=== PATIENT | male | born 1965 | race Caucasian/White ===

== ENCOUNTER 2023-05-24 14:27 | Inpatient (IN) | payer OTHER, BC ==
[~2023-05-24] VITALS: Ht 177.8 cm; Wt 80.9 kg
[~2023-05-24 14:27] MED LIST: B 100; B-121000 MCG; SUPPLEMENTS; VITAMIN C500 MG; VITAMIN D31000 I1
[2023-05-24] MEDS ORDERED: LIPITOR 80MG80 MG PO (14:30)
[2023-05-24] MEDS ORDERED: ELIQUIS 5MG PO (14:30)
[2023-05-24] MEDS ORDERED: ASPIRIN E.C. 8181 MG PO (14:30)
[2023-05-24] MEDS ORDERED: NEURONTIN300 MG/CAP PO (14:31)
[2023-05-24] MEDS ORDERED: GLUCOTROL 5M5 MG/TAB PO (14:32)
[2023-05-24] MEDS ORDERED: NORCO 325 MG-51 TAB PO (14:33)
[2023-05-24] MEDS ORDERED: LANTUS100 U/ML SQ (14:34)
[2023-05-24] MEDS ORDERED: HUMALOG100 U/ML SQ (14:36)
[2023-05-24] MEDS ORDERED: GLUCOPHAGE500 MG/TAB PO (14:37)
[2023-05-24] MEDS ORDERED: TOPROL XL 25MG25 MG PO (14:38)
[2023-05-24 17:00] VITALS: BP_SYST 122
[2023-05-24 17:51] VITALS: BP 122/94; PULSE 90; TEMP 97.9
[2023-05-24 18:30] VITALS: BP_SYST 122
--- NOTE | 2023-05-24 20:00 | NUR ---
PT RESTING IN BED. A&O X4. LT STUMP WITH IMMOBILIZER. OCCLUSIVE DRSG AND FAYE WRAP TO LLE STUMP. SMALL AMT OF BLEEDING THROUGH FAYE WRAP. WILL CONTINUE TO MONITOR. BUTTOCKS HAS SHEARING TO COCYX AND RED SCRATCH BEATTY TO BUTTOCKS. CLEANED AREA. SACRAL DRSG APPLIED. PANNUS, GROIN AND SCROTUM ARE RED AND ORDOROUS - APPARRENT YEAST. NOTIFIED MARY VALDEZ. SEE NEW ORDER FOR DESENEX POWDER. PT REPORTED HE HAS HAD THIS PRIOR TO IPR ADMISSION. PROVIDED TABLE TOP HAND VICE PRESIDENT [employer] AND ENC PT TO USE FREQUENTLY. PTS PANTS COVERED IN EXUDATE IN ARIEL AREA. PT CLEANED AND ENC PT TO GO WITHOUT PANTS TONIGHT TO AIR OUT. PT AGREED. WILL PLACE A AIR MATTRESS OVERLAY ON BED. REVIEWED DAILY IPR SCHEDULE AND EXPECTATIONS. PROVIDED WELCOME FOLDER TO PT. PT RELATED HAS POOR VISION SINCE "THEY TOOK OFF MY LEG." UNBLE TO SEE TO READ. PT RELATED PAIN LEVEL IS 2-3/10. PT STRATED LOOSENING IMMOBILIZER "FOR THE NIGHT." WILL CLARIFY ORDERS IN AM FOR DRSG CHANGES, AND IMMOBILIZER PLACEMENT. CALL LIGHT IN REACH. BED ALARM SET. PT TALKS EXCEPTIONALLY LOUD. PT DENIES HEARING LOSS.
--- NOTE | 2023-05-24 22:05 | NUR ---
PT STATES LOST 100 LBS AND STATES DOESN'T NEED CPAP
[2023-05-25 05:45] VITALS: BP 114/78; PULSE 85; TEMP 98.3
[2023-05-25 07:20] VITALS: BP_SYST 114
[2023-05-25 07:28] LABS: BASO # 0.1 K/mm3 (0.0-0.2); EOS # 0.2 K/mm3 (0.0-0.7); EOS % 2.6 % (0.0-4.0); GRAN # 5.1 K/mm3 (1.4-6.5); GRAN % 66.2 % (42.2-75.2); HEMATOCRIT 39.2 % (42.0-52.0); HEMOGLOBIN 13.1 g/dl (13.5-18.0); LYMPH # 1.6 K/mm3 (1.2-3.4); LYMPH % 20.8 % (20.0-51.0); MEAN CELL VOLUME 89 fl (80.0-100.0); MEAN CORPUSCULAR HEMOGLOBIN 30 pg (27-31); MEAN CORPUSCULAR HGB CONC 33 g/dl (33.0-37.0); MEAN PLATELET VOLUME 9.4 fl (7.4-10.4); MONO # 0.7 K/mm3 (0.1-0.6); PLATELET COUNT 331 K/mm3 (130-400); RED BLOOD COUNT 4.43 M/mm3 (4.20-5.60); REDCELL DISTRIBUTION WIDTH-CV 12.3 % (11.5-14.5)
[2023-05-25 07:36] LABS: ALBUMIN 3.2 gm/dL (3.5-5.0); BILIRUBIN,TOTAL 0.5 mg/dL (0.2-1.2); CREATININE, serum 0.7 mg/dL (0.72-1.25); POTASSIUM 3.9 mmol/L (3.5-4.5); TOTAL PROTEIN 7.1 gm/dL (6.2-8.1)
--- NOTE | 2023-05-25 08:26 | NUR ---
PATIENT ALERT AND ORIENTED X4. VSS. PATIENT HERE FOR S/P LEFT BKA. DRESSING AND IMMOBILIZER TO LLE. DRESSING APPLIED TO COCCYX, REDDENED BUT BLANCHABLE. EXCORIATION TO SCROTUM AND PANIS. POWDER APPLIED. NO FURTHER NEEDS. CALL LIGHT IN REACH. BED ALARM ON.
--- NOTE | 2023-05-25 14:42 | NUR ---
DRESSING TO LLE CHANGED, KNEE IMMOBILIZER PLACED AND ELEVATED ON PILLOW. PATIENT REPORTS PAIN 8/10, REQUESTS PAIN MEDICATION.
--- NOTE | 2023-05-25 15:19 | NUR ---
Has lack of transportation kept you from medical appts, meetings, work, or from getting things needed for daily living? no How often do you feel lonely or isolated from those around you? sometimes Over the past 5 days, how much of the time has pain made it hard for you to sleep? occasionally Over the past 5 days, how often have you limited your participation in therapy due to pain? rarely/not at all Over the past 5 days, how often have you limited your day-to-day activities because of pain? rarely/not at all Have you had 2 or more falls in the past year or any fall with an injury? yes Did you have major surgery during the 100 days prior to admission? yes
--- NOTE | 2023-05-25 16:30 | NUR ---
caseworker protective services met with patient to welcome him to the IPR unit. SW discussed discharge planning for patient. Patient lives in [place] with his . [place], [place]. Best point of contact is his , Jorge Mondragon, P# [phone]. Patient has no issues affording medications at this time. Patient did not have a DPOA-HC but wished to complete one. SW assisted with the DPOA-HC form, patient appointed his as primary and did not list a secondary. ANGELA and RN witnessed patient's signature. SW made several copies, placed a copy in the chart, provided original and several copies to the patient. Patient does not have any DME at this time but would like crutches or a walker at discharge. Patient would like to return home at time of discharge. Patient's had concerns regarding patient's discharge to home with his wound care. ANGELA notified Paris, IPR director, of these concerns.
[2023-05-25 18:00] VITALS: BP 115/78; PULSE 87; TEMP 98.2
[2023-05-25 19:00] VITALS: BP_SYST 115
--- NOTE | 2023-05-25 19:28 | NUR ---
report received from victor manuel cárdenas. pt resting in bed. pt denies pain at this time. bed alarm on. call light in reach. all needs met at this time.
--- NOTE | 2023-05-25 21:23 | NUR ---
shift assessment complete, see documentation. pt noted to have excoriation in the groin and lower abdominal flap, powder applied per orders. pt a&o x4. pt tolerated hs meds. pt used wc to bathroom with one staff assist. pt now back in bed. bed alarm on. call light in reach. all needs met at this time.
[2023-05-26 05:01] VITALS: BP 112/72; PULSE 71; TEMP 97.8
--- NOTE | 2023-05-26 05:40 | NUR ---
pt has slept well since njluisa oakley without issue. bed alarm on. call light in reach. all needs met at this time.
[2023-05-26 06:51] VITALS: BP_SYST 112
--- NOTE | 2023-05-26 10:25 | NUR ---
PATIENT ALERT AND ORIENTED X4. VSS. PATIENT HERE FOR REHAB S/P LEFT BKA. DRESSING TO LLE WITH DRAINAGE, CHANGED THIS MORNING BY THIS NURSE. PATIENT REPORTS PAIN 09/05, REQUESTS PAIN MEDICATION. ASSESSMENT PERFORMED. AM MEDS ADMINISTERED. PATIENT DENIES ANY FURTHER NEEDS. CALL LIGHT IN REACH. BED ALARM ON.
--- NOTE | 2023-05-26 15:31 | NUR ---
grease rack worker contacted patient's and scheduled a family meeting for Monday05/30/23 at 1 pm. SW notified [facility] director.
[2023-05-26 18:06] VITALS: BP 100/72; PULSE 90; TEMP 98.3
[2023-05-26 20:45] VITALS: BP_SYST 100
--- NOTE | 2023-05-26 21:33 | NUR ---
patient lying in bed alert and oriented x4. pt denies chest pain and shortness of breath. reports aching pain rated 3/10 in lower left extremity BKA, dressed with petrolleum gauze, anneliese wrapped, and immobilizer applied all clean dry and intact. desenex powder applied to red groin and lower abd, coccyx dressing clean dry and intact with small red scratch granados noted, air mattress in use. pt has no further needs, questions, or concerns at this time. call light within reach. will continue to monitor.
[2023-05-27 04:53] VITALS: BP 114/73; PULSE 77; TEMP 98
[2023-05-27 07:00] VITALS: BP_SYST 114
--- NOTE | 2023-05-27 10:57 | NUR ---
PT ALERT AND ORIENTED X4. VSS, SHIFT ASSESSMENT COMPLETE,SEE DOCUMENTATION. PAIN RATED 3/10, MEDICATED PER EMAR.PT COMPLAINING ABOUT HAVING TO GO TO THERAPY BECAUSE HE THOUGHT HE DIDNT HAVE TO GO TODAY, I EXPLAINED THAT HE WOULD NOT HAVE THERAPY ON MONDAY A COMPROMISE. HE SEEMED TO BE CONTENT WITH THE ANSWER AND HIS AGGIATION LESSENED. HE REMOVED HIS DRESSING FROM HIS STUMP ON HIS OWN AND I EXPLAINED TO HIM THAT HE SHOULDNT DO THAT D/T RISK OF INFECTION.CALL LIGHT WITHIN REACH, BED ALAEM SET.
--- NOTE | 2023-05-27 15:12 | NUR ---
PT BLOOD SUGAR WAS FOUND TO BE 65 AT LUNCHTIME AFTER THERAPY JUICE WAS GIVEN AND WHEN RECHECKED HE WAS AT 81.
[2023-05-27 17:15] VITALS: BP 114/75; PULSE 86; TEMP 98.1
[2023-05-27 19:00] VITALS: BP_SYST 114
[2023-05-28 06:10] VITALS: BP 118/74; PULSE 84; TEMP 98
[2023-05-28 07:50] VITALS: BP_SYST 118
[2023-05-28 16:36] VITALS: BP 101/65; PULSE 88; TEMP 98
[2023-05-28 19:07] VITALS: BP_SYST 101
[2023-05-29 05:04] VITALS: BP 112/74; PULSE 65; TEMP 97.7
[2023-05-29 07:06] VITALS: BP_SYST 112
--- NOTE | 2023-05-29 08:03 | NUR ---
PATINET AWAKE AND ALERT, SITTING UP IN BED. PATIENT DENIES ANY NEEDS OR COMPLAINTS AT THIS TIME. LLE IMMOBILIZER ON. PATINETS CALL LIGHT WITHIN REACH, BED ALARM ON.
--- NOTE | 2023-05-29 12:00 | NUR ---
PATIENTS BLOOD SUGAR THIS AM IS 132. PER PREVIOUS CHARTING AFTER PATIENT WAS ADMINISTERED INSULIN DURING THE MORNIGN WITH BREAKFST, HIS BLOOD SUGAR WOULD DROP TO THE 60S. THIS RN HELD SCHEDULED INSULIN. PATINETS BLOOD SUGAR DROPPED TO 62 EVEN WITHOUT HIS SCHEDULED INSULIN. THIS RN WILL INFORM HOSPITALIST.
[2023-05-29 16:41] VITALS: BP 104/72; PULSE 86; TEMP 98.1
[2023-05-29 19:00] VITALS: BP_SYST 104
--- NOTE | 2023-05-29 20:00 | NUR ---
UPON SHIFT ASSESSMENT, BELA WAS SLEEPING AND EASILY AROUSED. LT KNEE/STUMP WOUND DRESSING SHOWED SCANT SERINSANGEOUS DRAINAGE AND WOUND EDGES APPROXIMATE. INTACT NOLBERTO NOTED. REDRESSED WITH NON ADHERENT GAUZE AND KERLIX. VS WNL, BEDALARM ON AND CALL LIGHT WITHIN REACH.
[2023-05-30 05:42] VITALS: BP 123/84; PULSE 74; TEMP 98
[2023-05-30 06:30] VITALS: BP_SYST 123
--- NOTE | 2023-05-30 07:00 | NUR ---
DHIRAJ SLEPT THROUGH THE NIGHT. HE C/O OF NO PAIN AND HAD NO EMERGENT ISSUES. WOUND DRESSING REMAINS CDI.
[2023-05-30 07:24] LABS: BASO # 0.1 K/mm3 (0.0-0.2); BASO % 0.7 % (0.0-2.0); EOS # 0.2 K/mm3 (0.0-0.7); EOS % 2.7 % (0.0-4.0); GRAN # 5.7 K/mm3 (1.4-6.5); GRAN % 69.6 % (42.2-75.2); HEMATOCRIT 38.5 % (42.0-52.0); HEMOGLOBIN 12.7 g/dl (13.5-18.0); LYMPH # 1.6 K/mm3 (1.2-3.4); LYMPH % 19.4 % (20.0-51.0); MEAN CELL VOLUME 90 fl (80.0-100.0); MEAN CORPUSCULAR HEMOGLOBIN 30 pg (27-31); MEAN CORPUSCULAR HGB CONC 33 g/dl (33.0-37.0); MEAN PLATELET VOLUME 9.4 fl (7.4-10.4); MONO # 0.6 K/mm3 (0.1-0.6); MONO % 7.4 % (1.7-9.3); PLATELET COUNT 320 K/mm3 (130-400); RED BLOOD COUNT 4.26 M/mm3 (4.20-5.60); REDCELL DISTRIBUTION WIDTH-CV 12.9 % (11.5-14.5)
[2023-05-30 07:47] LABS: CALCIUM 9.6 mg/dL (8.4-10.2); CREATININE, serum 0.73 mg/dL (0.72-1.25); MAGNESIUM 1.6 mg/dL (1.6-2.6); POTASSIUM 3.8 mmol/L (3.5-4.5)
--- NOTE | 2023-05-30 08:56 | NUR ---
SHIFT ASSESSMENT COMPLETE. VSS. PATIENT UP IN BED EATING BREAKFAST. MORNING MEDS GIVEN PER ORDER, PATIENT REFUSED MORNING GABAPINTINE. PATIENT HAS NO REQUEST AT THIS TIME. FALL PRECAUTIONS IN PLACE AND CALL LIGHT IN REACH.
--- NOTE | 2023-05-30 15:30 | NUR ---
tankroom worker met with patient, IPR Director, and PT Mal[place] to complete a family meeting. The team expressed patient can discharge 06/01/23 with Home Health services and a FWW. Spouse, Jorge was on the phone and expressed she was concerned with pt not getting crutches as well. The team advised a FWW would be safer and better for stability. FLORINA Samson and Director elaborated the importance of this and will continue to practice with the crutches. SW advised she will see if [facility] insurance will cover both DME. Pt inquired about his ability to drive to outpatient services. Director elaborated on the reccomendation to not drive while on pain medications prior to see his doctor. Pt was agreeable this plan and HH services over outpatient. SW provided the Medicare.gov list and patient chose [facility] and [facility]. SW faxed referrals to these facilites. SW completed a RFS for DME and HH and emailed it to the [facility]. Pt reports he is [facility] with the [facility]. Discharge Plan: Home with Home Health tbd?
--- NOTE | 2023-05-30 15:33 | NUR ---
Admission QIM scores were reviewed by the team. Code of 5 chosen for toileting hygiene was determined by team discussion to be the most usual performance for this patient during the discharge assessment period. Code of 88 chosen for toilet transfers was determined by team discussion to be the most usual performance for this patient during the discharge assessment period. Code of 88 chosen for lower body dressing was determined by team discussion to be the most usual performance before interventions for this patient during the assessment period. Code of 4 chosen for sit to stand was determined by team discussion to be the most usual performance for this patient during the discharge assessment period. Code of 4 chosen for chair/bed to chair transfer was determined by team discussion to be the most usual performance before interventions for this patient during the assessment period. Code of 88 chosen for walking 10 feet was determined by team discussion to be the most usual performance for this patient during the discharge assessment period. Code of 88 chosen for walking 50 feet w/ 2 turns was determined by team discussion to be the most usual performance before interventions for this patient during the discharge assessment period. Code of 88 chosen for walking 150 feet was determined by team discussion to be the most usual performance before interventions for this patient during the assessment period.--Paris Styles,
[2023-05-30 18:17] VITALS: BP 114/76; PULSE 85; TEMP 98
[2023-05-30 19:00] VITALS: BP_SYST 114
--- NOTE | 2023-05-30 19:03 | NUR ---
report received from maged hankins. pt sitting in bed video chatting with family. pt denies pain. bed alarm on. call light in reach. all needs met at this time.
--- NOTE | 2023-05-30 21:35 | NUR ---
shift assessment complete, see documentation. pt denies pain. pt tolerated hs meds well. pt very excited to go home this week. bed alarm on. call light in reach. all needs met at this time.
[2023-05-31 05:41] VITALS: BP 120/76; PULSE 85; TEMP 98.1
[2023-05-31 07:03] VITALS: BP_SYST 120
--- NOTE | 2023-05-31 07:04 | NUR ---
Shift report received from night RN. No events reported overnight. Pt awake & lying supine in bed. Reports sleeping well overnight. Denies pain. Denies other needs. Call light in reach. Bed alarm on.
--- NOTE | 2023-05-31 07:36 | NUR ---
Pt sitting up in bed after eating 100% breakfast independently. Pain/discomfort denies. Other needs denied. Call light in reach. Bed alarm on.
--- NOTE | 2023-05-31 08:28 | NUR ---
Pt off unit w/ PT.
--- NOTE | 2023-05-31 11:07 | NUR ---
Pt lying supine in bed for L stump dressing change after showering w/ OT. Dressings removed to reveal intact sutures to stump incision. Dried blood noted to telfa dressings upon removal. No active bleeding or drainage noted. Telfa, kerlix, anneliese wrap applied. Pt teaching provided re: figure 8 stump wrapping. Pt had no further questions at this time. OT at the bedside for shaving.
--- NOTE | 2023-05-31 15:23 | NUR ---
Will lack of transportation kept you from medical appts, meetings, work, or from getting things needed for daily living? NO How often do you feel lonely or isolated from those around you? SOMETIMES Over the past 5 days, how much of the time has pain made it hard for you to sleep? RARELY OR NOT AT ALL Over the past 5 days, how often have you limited your participation in therapy due to pain? RARELY OR NOT AT ALL Over the past 5 days, how often have you limited your day-to-day activities because of pain? RARELY OR NOT AT ALL
--- NOTE | 2023-05-31 15:49 | NUR ---
Pt sitting up in the recliner w/ BLE elevated on footrest. Has a visitor in the room. Pt denies pain. Denies other needs. Call light in reach. Chair alarm on.
--- NOTE | 2023-05-31 16:19 | NUR ---
dairy cattle farm worker attended a team meeting regarding patient. He was reccomended for discharge tomorrow with Home Health and a FWW. ANGELA was informed by [facility] and [facility] they can both accept pt. ANGELA informed patient whom chose ANGELA [facility] faxed updates to them. ANGELA was informed by patient that he spoke with Dr. Hennessy and was cleared to drive, so he would like Outpatient PT. He was wanting [facility]. ANGELA explained there is one on [address] and [address]. Pt chose the one on [address]. ANGELA spoke with Paris, Director and she confirmed the conversation with that patient can do OP PT. ANGELA faxed a referral to [facility] [address]. ANGELA completed a RFS and emailed it to the [facility] requesting auth for this service. ANGELA was called by patient to discuss the DME equipment. ANGELA advised she sent the request form yesterday and it has been assigned a nurse. She said there was no further update. Pt verbalized he was upset and has things to do tomorrow. His is able to get him after 12pm tomorrow. ANGELA advised the earliest discharge is 11am and she is awaiting an update. ANGELA spoke with IPR Director who advised if pt does not recieve these to contact [facility] or [facility] to rent a FWW for use while the [facility] is awaiting on auth. Discharge Plan: Home 06/01 with Outpatient PT
[2023-05-31 17:53] VITALS: BP 108/70; PULSE 95; TEMP 98.5
[2023-05-31 19:11] VITALS: BP_SYST 108
--- NOTE | 2023-05-31 19:11 | NUR ---
Received change of shift report from day shift nurse. Patient up in chair during report, patient request to go to bed at end of report with no further requests/concerns or complaints at this time.
--- NOTE | 2023-06-01 00:08 | NUR ---
Patient resting with eyes closed, breathing even and nonlabored. Did not wake during nursing rounds. Exit alarm on, call light in reach.
[2023-06-01 05:36] VITALS: BP 120/77; PULSE 88; TEMP 97.9
[2023-06-01 07:06] VITALS: BP_SYST 120
--- NOTE | 2023-06-01 07:10 | NUR ---
Change of shift report given to day shift nurseAlina.
--- NOTE | 2023-06-01 08:44 | NUR ---
PT SITTING UP IN BED, EATING BREAKFAST. ALERT AND ORIENTED X4. NO PAIN AT THIS TIME. CHANGED BKA DRESSING WITH GUAZE, KERLEX, AND FAYE WRAP. SUTURES ARE STILL IN BLEEDING. SOME BLOODY DRAINAGE ON DRESSING. APPLIED POWDER TO PANUS, GROIN, AND SCROTUM. REDDNESS BETWEEN FOLDS. ASSESSED. GAVE MORNING MEDS. CALL LIGHT WITHIN REACH.
[2023-06-01] MEDS ORDERED: ELIQUIS 5MG PO (09:31)
[2023-06-01] MEDS ORDERED: LIPITOR 80MG80 MG PO (09:32)
[2023-06-01] MEDS ORDERED: GLUCOPHAGE500 MG/TAB PO (09:33)
[2023-06-01] MEDS ORDERED: GLUCOTROL 5M5 MG/TAB PO (09:34)
[2023-06-01] MEDS ORDERED: DESENEX TP (09:35)
[2023-06-01] MEDS ORDERED: NORCO 325 MG-51 TAB PO ×2 (09:36→09:43)
--- NOTE | 2023-06-01 10:43 | NUR ---
farmworker brooder farm recieved a call from Ramona at the [facility] reporting they can have the DME equipment ordered today and brought to the hospital around 12pm. ANGELA recieved another call from the [facility] reporting that pt requested a shower chair and they need a RFS for it. ANGELA completed a RFS and emailed it to the [place] for the shower chair. ANGELA informed patient he will recieve the FWW and crutches around 12pm today from the [facility]. He was reminded he cannot take the hospital's equipment, even if it is adjusted to him. ANGELA informed SHAHAB [place] and Dr. Hennessy of this. ANGELA informed [facility] while on the phone of the [facility] PT RFS, they are aware and proccessing. ANGELA informed pt they have this and are processing it. Discharge Plan: Home with [facility] today
--- NOTE | 2023-06-01 12:25 | NUR ---
Discharge QIM scores were reviewed by the team. Code of 6 chosen for putting on/taking off footwear was determined by team discussion to be the most usual performance for this patient during the discharge assessment period. Code of 6 chosen for walking 10 feet was determined by team discussion to be the most usual performance for this patient during the discharge assessment period. Code of 6 chosen for walking 50 feet w/ 2 turns was determined by team discussion to be the most usual performance before interventions for this patient during the discharge assessment period.--Paris Styles, PD
--- NOTE | 2023-06-01 14:05 | NUR ---
PT HAD DISCHARGE ORDERS. WENT OVER DISCHARGE PAPERWORK WITH PT. PT GOT CRUTCHES AND WALKER BROUGHT IN FOR HIM TO TAKE HOME. THIS NURSE ESCORTED PT OUT WITH .
== END 2023-06-01 14:07 | disposition home or self-care (01) | DRG 561 ==
PROVIDERS: Internal Medicine; ADMIT Internal Medicine
DX: Z47.81 Encounter for orthopedic aftercare following surgical amputation (principal); R53.81 Other malaise; E11.51 Type 2 diabetes mellitus with diabetic peripheral angiopathy without gangrene; E11.40 Type 2 diabetes mellitus with diabetic neuropathy, unspecified; I10 Essential (primary) hypertension; F17.210 Nicotine dependence, cigarettes, uncomplicated; E78.5 Hyperlipidemia, unspecified; R26.89 Other abnormalities of gait and mobility; Z79.899 Other long term (current) drug therapy; Z79.4 Long term (current) use of insulin; Z74.09 Other reduced mobility; Z79.82 Long term (current) use of aspirin; Z79.01 Long term (current) use of anticoagulants; Z79.84 Long term (current) use of oral hypoglycemic drugs; Z89.512 Acquired absence of left leg below knee
CPT/HCPCS: A9284; J1815

== ENCOUNTER → 2023-06-28 | Outpatient (RCR) | payer OTHER, BC ==
[~2023-06-28] MED LIST changes: +ASPIRIN E.C. 8181 MG PO; +DESENEX TP; +ELIQUIS 5MG PO; +GLUCOPHAGE500 MG/TAB PO; +GLUCOTROL 5M5 MG/TAB PO; +HUMALOG100 U/ML SQ; +LANTUS100 U/ML SQ; +LIPITOR 80MG80 MG PO; +NEURONTIN300 MG/CAP PO; +NORCO 325 MG-51 TAB PO; +TOPROL XL 25MG25 MG PO
== END | disposition home or self-care (01) ==
LOC: MKS.ESL.PT
DX: Z89.512 Acquired absence of left leg below knee (principal)

== ENCOUNTER 2023-08-09 15:15 | Outpatient (RCR) | payer OTHER, BC | END 2023-08-27 | disposition home or self-care (01) | LOC: MKS.ESL.PT | DX: I73.9 Peripheral vascular disease, unspecified (principal); Z89.512 Acquired absence of left leg below knee ==

== ENCOUNTER 2023-10-12 16:00 | Outpatient (RCR) | payer OTHER, BC | END 2023-10-27 | LOC: MKS.ESL.PT | DX: Z89.512 Acquired absence of left leg below knee (principal) ==